=== PATIENT | female | born 1985 | race Caucasian/White ===

== ENCOUNTER 2019-02-01 01:01 | Inpatient (IN) | payer OTHER ==
[2019-02-01 01:34] VITALS: BMI 29.7
[2019-02-01] MEDS ORDERED: Morphine 4 MG/ML VIAL IM PRN (02:27)
--- NOTE | 2019-02-01 02:51 | PRG ---
DATE OF SERVICE: 02/01/2019 PRIMARY OB: Marianne Alvarez DO CHIEF COMPLAINT: Abdominal pain. HISTORY OF PRESENT ILLNESS: The patient is a 33-year-old G4, P2 female with an intrauterine at 40 weeks and a day, who is presenting to Labor and Delivery with increasing abdominal pain that she reports is increased in intensity this evening. She reports that they started several days ago and have been intermittent in duration. She reports them about every 6-8 minutes and drove in from [place] for evaluation. She also reports she is having increased bloody discharge. She denies fever, fall, headache, chest pain, shortness of breath, nausea, vomiting, diarrhea, constipation, hip problems, knee problems, muscle weakness, or urinary urgency. PAST MEDICAL HISTORY: Negative. PAST SURGICAL HISTORY: One prior . SOCIAL HISTORY: Denies drug, alcohol, or tobacco use. ALLERGIES: NO KNOWN DRUG ALLERGIES. MEDICATIONS: vitamins. OB LABORATORY DATA: Blood type is A positive. Antibody screen is negative. She is rubella immune. Hepatitis B surface antigen is negative. One-hour Glucola is 87. HIV is negative. She is group B strep positive. REVIEW OF SYSTEMS: Per HPI. PHYSICAL EXAMINATION: VITAL SIGNS: Blood pressure 110/80, heart rate of 84, respiratory rate 18, saturating 96% on room air, temperature 97.9. GENERAL: She appears to be in no acute distress. She is alert, oriented, cooperative, and pleasant to interact with. HEAD: Normocephalic, atraumatic. LUNGS: Clear to auscultation bilaterally. HEART: Has regular rate and rhythm. ABDOMEN: Soft, gravid, nontender between contractions. EXTREMITIES: Nontender with symmetrical 1+ edema. CERVICAL: She is 3, 80, and -3 station. DIAGNOSTIC STUDIES: heart tracing demonstrates baseline in the 120s with moderate long-term variability, 15 x 15 accelerations, contractions anywhere from 2 to 4 minutes with irritability making much of those contractions almost not felt by the patient. ASSESSMENT AND PLAN: The patient is a 33-year-old female with an intrauterine at 40 weeks and a day, scheduled for induction of labor in 2 days. The patient lives about an hour plus from here. Given the hour of the night, we have chosen to let the patient stay until morning at which time we will re-examine her cervix for cervical change. The patient has been offered pain medication for control, which she will use it if she has trouble sleeping. In morning time if she has not made any cervical change, the patient will be discharged to home. Dr. Alvarez will be notified of her presence that she is still here. Job ID: [id number]
[2019-02-01] MEDS ORDERED: Methylergonovine 0.2 MG/ML VIAL IM PRN (03:12)
[2019-02-01] MEDS ORDERED: Ondansetron PF 4 MG/2 ML Vial IVP PRN ×3 (03:12→15:10)
[2019-02-01] MEDS ORDERED: Lidocaine 1% (PF) 30 ML VIAL SC PRN (03:12)
[2019-02-01] MEDS ORDERED: Acetaminophen 500 MG TAB PO PRN (03:12)
[2019-02-01] MEDS ORDERED: Misoprostol 200 MCG TAB PR PRN (03:12)
[2019-02-01] MEDS ORDERED: Promethazine HCl 25 MG/ML VIAL IM PRN ×2 (03:12→04:53)
[2019-02-01] MEDS ORDERED: Carboprost 250 MCG/ML AMP IM PRN (03:12)
[2019-02-01] MEDS ORDERED: Ibuprofen 800 MG TAB PO PRN (03:12)
[2019-02-01] MEDS ORDERED: Diphenoxylate HCl/Atropine Tablet PO PRN (03:12)
[2019-02-01] MEDS ORDERED: HYDROcodone/Acetaminophen 5/325 mg Tablet PO PRN ×3 (03:12→15:10)
[2019-02-01] MEDS ORDERED: Butorphanol Tartrate 1 MG/ML VIAL SLOW IVP PRN (03:12)
[2019-02-01] MEDS ORDERED: Penicillin G Potassium 5 MILL.UNITS in Sodium Chloride 0.9% 100 ML IVPB SCH (03:15)
--- NOTE | 2019-02-01 03:20 | PDOC.LDHP ---
Labor and Delivery H&P Chief complaint: contractions, loss of fluid HPI: 33 yo @ 40w1d by 9 week CRL who presents to L&D with c/o ctx and now apparent SROM in L&D. Pt antepartum course complicated by h/o x1, LTCS x1 due to arrest of descent (however, pt reports that she had to push for 2-3 hours with her first baby and had uncomplicated and was not allowed to push > 1 hour with her second). She desires a TOLAC and has been counseled. Current gestational age (weeks): 40 Due date: 01/31/19 Dating criteria: first trimester ultrasound Grav: 4 Para: 2 OB History Details: x1 - 2009 LTCS x 1 - 2013 Current complications: none, preeclampsia with severe features Abnormal US findings: No Past Medical History: Denies Current medications: pre- vitamins Previous surgical history: low tranverse CS Allergies/Adverse Reactions: Allergies Allergy/AdvReac Type Severity Reaction Status Date / Time No Known Allergies Allergy Unverified 02/01/19 01:23 Social history: none - Physical Exam Vital signs reviewed and normal: yes General: NAD FHT: category 1 (120s, mod kamryn, +accels, no decels) [place] contractions every: q3-4 min - Vaginal Exam cm dilated: 3 (cephalic; SROM per RN ) Effacement: 50% Station: -2 - OB Labs Blood type: A RH: positive Antibody Screen: negative HIV: negative RPR: negative HEPSAg: negative 1 hour GCT: negative GBS: positive Urine drug screen: negative Rubella: immune - Assessment 40w1d IUP SROM, latent labor H/O x1, LTCS x1 GBS+ - Plan Plan: admit to L&D, labor augmentation if indicated, GBS antibiotic prophylaxis , informed consent obtained, anesthesia consult for pain management -: Pt has been counseled on option of RCD vs TOLAC. R/B/A/I have been reviewed. She desire TOLAC. Monitor labor.
[2019-02-01] MEDS: Lactated Ringer's 1,000 ML IV SCH ×2 (03:38→06:52)
[2019-02-01 03:52] LABS: Hemoglobin 13.4 g/dL (12.0-16.0); Mean Corpuscular HGB CONC 34.1 g/dL (32.0-36.0); Mean Corpuscular Hemoglobin 30.6 pg (27.0-31.0); Mean Corpuscular Volume 89.7 fL (78.0-98.0); Mean Platelet Volume 8.5 fL (7.4-10.4); Platelet Count 171 thou/uL (130-400); RBC Distribution Width 12.4 % (11.5-14.5); Red Blood Cell (RBC) Count 4.39 mill/uL (4.20-5.40); White Blood Cell (WBC) Count 10.2 thou/uL (4.8-10.8)
[2019-02-01] MEDS ORDERED: Fentanyl 4 mcg/Bup 0.1% Cadd 100 ML ONE (04:03)
[2019-02-01 04:27] LABS: HIV (1/2) Antibody/Antigen Non-Reactive (NonReactive); HIV 1/2 INDEX 0.07 S/CO (<1.00); Hep B Surf Ag Non-Reactive S/CO (NonReactive)
[2019-02-01 04:33] LABS: Syphilis Antibody Nonreactive (Nonreactive); Syphilis Antibody Index 0.04 S/CO (<1.00 Non-Reactive)
[2019-02-01] MEDS ORDERED: ePHEDrine/0.9% NaCl/PF SYRINGE 50 mg/10 ml SLOW IVP PRN (04:53)
[2019-02-01] MEDS ORDERED: Eucerin (Mineral Oil/Petrolatum,White) 30 gm Jar TOP PRN (04:53)
[2019-02-01] MEDS ORDERED: Acetaminophen 325 MG TAB PO PRN (04:53)
[2019-02-01] MEDS ORDERED: Lactated Ringer's 500 ML IV PRN (04:53)
[2019-02-01] MEDS ORDERED: diphenhydrAMINE 50 MG/ML VIAL IVP PRN (04:53)
[2019-02-01] MEDS ORDERED: Naloxone HCl 0.4 mg/ml Vial IVP PRN ×2 (04:53)
[2019-02-01] MEDS ORDERED: Communication Order-Pharmacy FS SCH (05:00)
[2019-02-01] MEDS ORDERED: Fentanyl 4 mcg/Bupivacaine 0.1% Cassette 100 ML EPIDURAL SCH (05:00)
[2019-02-01] MEDS ORDERED: Penicillin G 2.5 MILL.units 2.5 MILL.UNITS in Premix Bag 1 BAG IVPB SCH (07:15)
--- NOTE | 2019-02-01 08:03 | PDOC.LDPN ---
Labor & Delivery Progress Note - Subjective Subjective: comfortable - Objective Vital signs reviewed and normal: yes General: resting Dilation: 9 Effacement: 90% Station: 1+ FHT: early decelerations, variability present [place] contractions every: 2 - Assessment (1) 40 weeks gestation of Code(s): Z3A.40 - 40 WEEKS GESTATION OF Current Visit: Yes Status : Acute (2) Previous delivery affecting Code(s): O34.219 - MATERNAL CARE FOR UNSP TYPE SCAR FROM PREVIOUS DEL Current Visit: Yes Status: Acute (3) Positive GBS test Code(s): B95.1 - STREPTOCOCCUS, GROUP B, CAUSING DISEASES CLASSD [id number] Current Visit: Yes Status: Acute Plan: continue plan of care -: A/P: Progressing in active phase well, aware of risk and benefits of LÓPEZ vs RCS. FHT reassuring. Anticipate .
[2019-02-01] MEDS ORDERED: NS / Oxytocin 40 units/1000ml 1,000 ML IV PRN (10:34)
[2019-02-01] MEDS ORDERED: Bupivacaine 0.25% HCL 30 ML VIAL ONE (11:11)
[2019-02-01] MEDS: NS / Oxytocin 40 units/1000ml 1,000 ML IV PRN ×2 (12:05→12:40)
--- NOTE | 2019-02-01 12:12 | PDOC.OPDEL ---
OB Operative/Delivery Note Delivery Dr/Surgeon: Chau Pre-Delivery Diagnosis: active labor Procedure/Post Delivery Dx: vaginal delivery after CS Weeks gestation: 40 - Findings A Sex: male - 1 min: 8 - 5 min: 9 - Additional Findings/Plan Placenta delivered: spontaneous Repaired Obstetrical Laceration: 2nd degree Estimated blood loss: 200ml Compilations/Other Findings: 2nd stage 2 hours Post delivery plan: routine recovery
[2019-02-01] MEDS ORDERED: Bisacodyl 10 MG SUPP PR PRN (15:10)
[2019-02-01] MEDS ORDERED: NS / Oxytocin 40 units/1000ml 1,000 ML IV SCH (15:10)
[2019-02-01] MEDS ORDERED: Lanolin Ointment 7 GM TUBE TOP PRN (15:10)
[2019-02-01] MEDS ORDERED: Milk Of Magnesia 30 ML UDCUP PO PRN (15:10)
[2019-02-01] MEDS ORDERED: diphenhydrAMINE 25 MG CAP PO PRN (15:10)
[2019-02-01] MEDS: Ferrous Sulfate 325 MG TAB PO SCH (16:21)
[2019-02-01] MEDS: Docusate Calcium (SURFAK) 240 MG CAP PO SCH (21:46)
[2019-02-01] MEDS: Ibuprofen 800 MG TAB PO SCH (21:47)
[2019-02-02] MEDS: Ibuprofen 800 MG TAB PO SCH ×2 (06:11→13:20)
--- NOTE | 2019-02-02 08:09 | PDOC.PP ---
Post Progress Note Post Day #: 1 Subjective: No concerns. Moderate lochia and minimal pain. intermittent latching, however, does desire to see LC today. PO intake tolerated: yes Flatus: yes Ambulation: yes Vital Signs (12 hours) Temp Pulse Resp BP 02/02/19 03:00 98.1 F 75 18 96/51 L 02/01/19 20:20 98.2 F 82 18 98/61 Weight Weight 168 lb - Physical Examination General: NAD Cardiovascular: RRR Respiratory: non-labored breathing Abdominal: no distention, appropriately TTP Extremities: negative homans (B) Neurological: no gross focal deficits Psychiatric: A&Ox3, normal affect Result Diagrams: 02/01/19 03:35 Additional Labs: Post Labs Blood Type A POSITIVE 02/01/19 07:27 Hep Bs Antigen Non-Reactive S/CO (NonReactive) 02/01/19 03:35 (1) Vaginal after delivery Code(s): O34.219 - MATERNAL CARE FOR UNSP TYPE SCAR FROM PREVIOUS DEL Status: Acute - Assessment/Plan PPD 1 VSSAF Meeting PP requirements. LC today. Plan for d/c this PM if cleared for d/c.
[2019-02-02] MEDS ORDERED: Adacel (T-DAP) 0.5 ML SYRINGE IM ONE (09:00)
[2019-02-02] MEDS ORDERED: Prenatal Vitamin 1 TAB PO SCH (09:00)
[2019-02-02] MEDS: Ferrous Sulfate 325 MG TAB PO SCH ×2 (10:30→15:34)
[2019-02-02] MEDS: Docusate Calcium (SURFAK) 240 MG CAP PO SCH (10:30)
[2019-02-02 12:09] VITALS: BP 96/50; TEMP 97.7
== END 2019-02-02 17:00 | disposition home or self-care (01) | DRG 807 ==
LOC: L&D/OP 01:01 → L&D 03:32 → 3SW 14:39
PROVIDERS: ADMIT Obstetrics & Gynecology; ATTEND Obstetrics & Gynecology
PROC: 10E0XZZ Delivery of Products of Conception, External Approach (ICD-10-PCS; principal; 2019-02-01)
PROC: 0KQM0ZZ Repair Perineum Muscle, Open Approach (ICD-10-PCS; 2019-02-01)
DX: O14.14 Severe pre-eclampsia complicating childbirth (principal); Z37.0 Single live birth; O99.824 Streptococcus B carrier state complicating childbirth; O48.0 Post-term pregnancy; O34.219 Maternal care for unspecified type scar from previous cesarean delivery; O70.1 Second degree perineal laceration during delivery; Z3A.40 40 weeks gestation of pregnancy
CPT/HCPCS: 36415; 51702; 85027; 86780; 86850; 86900; 86901; 87340; 87389; 99285; J2001; J2540; J3490; S0020